=== PATIENT | male | born 1985 | race Caucasian/White ===

== ENCOUNTER 2021-09-13 09:34 | Emergency (ER) | payer OTHER ==
[~2021-09-13] VITALS: Ht 182.9 cm; Wt 77.1 kg
[2021-09-13 10:13] LABS: BASOPHILS ABSOLUTE AUTO 0.07 K/mm3 (0.00-0.23); BASOPHILS PERCENT AUTO 1 % (0-2); EOSINOPHILS ABSOLUTE AUTO 0.27 K/mm3 (0.00-0.68); EOSINOPHILS PERCENT AUTO 4 % (0-6); Hematocrit 36.4 % (37.0-53.0); Hemoglobin 10.7 g/dL (13.5-17.5); IMMATURE GRAN ABSOLUTE AUTO 0.02 K/mm3 (0.00-0.10); IMMATURE GRAN PERCENT AUTO 0 % (0-1); LYMPHOCYTES ABSOLUTE AUTO 1.25 K/mm3 (0.84-5.20); LYMPHOCYTES PERCENT AUTO 16 % (21-46); MONOCYTES ABSOLUTE AUTO 0.46 K/mm3 (0.16-1.47); MONOCYTES PERCENT AUTO 6 % (4-13); Mean Corpuscular HGB 22.1 pg (26.0-34.0); Mean Corpuscular HGB Conc 29.4 g/dL (31.5-36.5); Mean Corpuscular Volume 75 fL (80-100); Mean Platelet Volume 9.2 fL (9.1-12.4); NEUTROPHILS ABSOLUTE AUTO 5.55 K/mm3 (1.96-9.15); NEUTROPHILS PERCENT AUTO 73 % (41-73); Platelet Count 313 K/mm3 (150-400); RDW Coefficient Variation 18.5 % (11.7-14.2); RDW Standard Deviation 49.6 fL (35.1-46.3); Red Blood Cell Count 4.85 M/mm3 (4.30-5.90); White Blood Cell Count 7.62 K/mm3 (4.00-11.30)
[2021-09-13 10:36] LABS: Alanine Aminotransfer (ALT/SGP 30 U/L (12-78); Albumin, Blood 3.4 g/dL (3.4-5.0); Albumin/Globulin Ratio 0.9 (0.8-1.8); Alk Phos 100 U/L (50-136); Anion Gap 5 mmol/L (6-16); Aspartate Aminotrans (AST/SGOT 28 U/L (12-37); Bilirubin, Total 0.2 mg/dL (0.1-1.0); Blood Urea Nitrogen 11 mg/dL (8-24); Bun/Creatinine Ratio 14.2 (12.0-20.0); CO2, Blood 27 mmol/L (21-32); Calcium, Blood 8.5 mg/dL (8.5-10.1); Chloride, Blood 110 mmol/L (98-108); Creatinine, Blood 0.78 mg/dL (0.60-1.20); Globulin, Blood 3.7 g/dL (2.2-4.0); Glomerular Filtration Rate >60 (60-); Glucose, Blood 137 mg/dL (70-99); Potassium, Blood 4.2 mmol/L (3.5-5.5); Sodium, Blood 142 mmol/L (136-145); Total Protein, Blood 7.1 g/dL (6.4-8.2)
== END 2021-09-13 12:18 | disposition home or self-care (01) ==
LOC: ER 09:34
PROVIDERS: Emergency Medicine
DX: R06.02 Shortness of breath (principal); R07.9 Chest pain, unspecified; R11.2 Nausea with vomiting, unspecified; Z87.891 Personal history of nicotine dependence; Z93.3 Colostomy status
CPT/HCPCS: 71045; 80053; 83690; 83880; 84484; 85025; 93005; 93010; J2405; J7030

== ENCOUNTER 2021-09-15 05:41 | Emergency (ER) | payer OTHER ==
[~2021-09-15] VITALS: Ht 182.9 cm; Wt 77.1 kg
== END 2021-09-15 06:43 | disposition home or self-care (01) ==
LOC: ER 05:41
DX: Z43.3 Encounter for attention to colostomy (principal); Z87.891 Personal history of nicotine dependence
CPT/HCPCS: 99283

== ENCOUNTER 2021-09-23 08:30 | Emergency (ER) | payer OTHER ==
[~2021-09-23] VITALS: Ht 182.9 cm; Wt 77.1 kg
[2021-09-23] MEDS ORDERED: MIRT30 PO (10:32)
[2021-09-23] MEDS ORDERED: DULO60 PO (10:32)
[2021-09-23] MEDS ORDERED: BUSP10 PO (10:32)
== END 2021-09-23 11:14 | disposition home or self-care (01) ==
LOC: ER 08:30
DX: Z76.0 Encounter for issue of repeat prescription (principal); Z87.891 Personal history of nicotine dependence; Z59.00 Homelessness unspecified; Z93.3 Colostomy status; Z79.899 Other long term (current) drug therapy
CPT/HCPCS: A9270